=== PATIENT | male | born 1980 | race Caucasian/White ===

== ENCOUNTER 2020-04-01 14:00 | Inpatient (IN) | payer OTHER ==
[~2020-04-01] VITALS: Ht 188 cm; Wt 100.5 kg
[2020-04-01 14:29] LABS: BASOPHILS ABSOLUTE AUTO 0.03 K/mm3 (0.00-0.23); BASOPHILS PERCENT AUTO 0 % (0-2); EOSINOPHILS PERCENT AUTO 0 % (0-6); Hematocrit 44.1 % (37.0-53.0); Hemoglobin 14.9 g/dL (13.5-17.5); IMMATURE GRAN ABSOLUTE AUTO 0.06 K/mm3 (0.00-0.10); IMMATURE GRAN PERCENT AUTO 0 % (0-1); LYMPHOCYTES ABSOLUTE AUTO 2.23 K/mm3 (0.84-5.20); LYMPHOCYTES PERCENT AUTO 16 % (21-46); MONOCYTES ABSOLUTE AUTO 0.87 K/mm3 (0.16-1.47); MONOCYTES PERCENT AUTO 6 % (4-13); Mean Corpuscular HGB 30.8 pg (26.0-34.0); Mean Corpuscular HGB Conc 33.8 g/dL (31.5-36.5); Mean Corpuscular Volume 91 fL (80-100); Mean Platelet Volume 9.4 fL (9.1-12.4); NEUTROPHILS ABSOLUTE AUTO 10.56 K/mm3 (1.96-9.15); NEUTROPHILS PERCENT AUTO 77 % (41-73); Platelet Count 248 K/mm3 (150-400); RDW Standard Deviation 40.4 fL (35.1-46.3); Red Blood Cell Count 4.83 M/mm3 (4.30-5.90); White Blood Cell Count 13.75 K/mm3 (4.00-11.30)
[2020-04-01 14:33] LABS: PCO2 Arterial 51.9 mmHg (35-45); PO2 Arterial 144 mmHg (80-100); pH Blood Arterial 7.35 (7.35-7.45)
[2020-04-01 14:45] LABS: Alanine Aminotransfer (ALT/SGP 34 U/L (12-78); Albumin, Blood 3.3 g/dL (3.4-5.0); Albumin/Globulin Ratio 0.9 (0.8-1.8); Alk Phos 82 U/L (50-136); Anion Gap 10 mmol/L (6-16); Aspartate Aminotrans (AST/SGOT 32 U/L (12-37); Bilirubin, Total 0.7 mg/dL (0.1-1.0); Blood Urea Nitrogen 9 mg/dL (8-24); Bun/Creatinine Ratio 13.8 (12.0-20.0); CO2, Blood 29 mmol/L (21-32); Calcium, Blood 7.8 mg/dL (8.5-10.1); Chloride, Blood 98 mmol/L (98-108); Creatinine, Blood 0.65 mg/dL (0.60-1.20); Globulin, Blood 3.7 g/dL (2.2-4.0); Glomerular Filtration Rate >60 (60-); Glucose, Blood 205 mg/dL (70-99); Potassium, Blood 3.2 mmol/L (3.5-5.5); Sodium, Blood 137 mmol/L (136-145)
[2020-04-01 14:49] LABS: Ethanol (Alcohol), Blood, Med 482 mg/dL
[2020-04-01 15:06] LABS: Source, Urine Catheter
[2020-04-01 15:36] LABS: Appearance, Urine Hazy (Clear); Bilirubin, Urine Neg (Neg); Blood, Urine 5+ (Neg); Color, Urine Yellow (P-Yellow); Glucose Qualitative, Urine 3+ (Neg); Ketones, Urine 1+ (Neg); Leukocyte Esterase, Urine Neg (Neg); Nitrite, Urine Neg (Neg); Protein, Urine 3+ (Neg); Specific Gravity, Urine 1.025 (1.003-1.022); Urobilinogen, Urine NORM (Normal)
[2020-04-01 16:07] LABS: U Amphetamine Screen Not Detected; U Barbituate Screen Not Detected; U Benzodiazapine Screen Not Detected; U Buprenorphine Screen Not Detected; U Cannabinoids Screen Not Detected; U Cocaine Screen Not Detected; U Methadone Screen Not Detected; U Methamphetamine Screen Not Detected; U Opiates Screen Not Detected; U Oxycodone Screen Not Detected; U Phencyclidine Screen Not Detected; U Propoxyphene Screen Not Detected
[2020-04-01 16:16] LABS: Amorphous Mod (0-Heavy); Bacteria Rare /hpf; Squamous Epithelial Cells Rare /hpf (Few); White Blood Cells, Urine 0-2 /hpf (0-5)
--- NOTE | 2020-04-01 17:30 | NUR ---
PT ARRIVED FROM EMERGENCY DEPT WITH RN,RT,PCT. PT VENTILATED, OG TUBE IN PLACE, IV IN RIGHT HAND WITH PROPOFOL INFUSION, NS IN LEFT AC. PT WITH 5 PERSON TRANSFER WITH C-SPINE PRECAUTIONS IN PLACE. PT SWITCHED FROM PORTABLE VENTILATOR TO IN ROOM VENT. FULL BODY INSPECTION DURING REMOVAL OF EXCESS LINEN WHILE LOG ROLLING WITH [address] MEDEIROS IN TO ASSESS PATIENT. ORDERS RECEIVED. PT WITH PUPIL REACTION BUT EYES WANDERING LEFT AND RIGHT. PT WITH VISIBLE SHIVERING AND "GOOSE BUMP" SKIN. ALVARO HUGGER APPLIED. RESTRAINTS IN PLACE FOR SAFETY.
--- NOTE | 2020-04-01 19:00 | NUR ---
ASSUMPTION OF CARE RECEIVED REPORT FROM NANCY MARCELO AND JOSH MARCELO. ASSUMED CARE OF PATIENT. PATIENT VENTILATED AC16, VT 50, PEEP5, FIO2 30%. PROPOFOL AT 30MCG/KG/MIN. C-COLLAR IN PLACE. NO S/S OF DISTRESS, VITALS STABLE. WILL REVIEW ORDERS AND TREAT PRESCRIBED.
--- NOTE | 2020-04-01 19:25 | NUR ---
SUMMARY Assumed care of pt with Carmella MARCELO upon arrival to ICU 13 from ED at 1654. Pt arrived intubated. Transferred from ED gurney to ICU bed with several staff and C-spine precautions. Connected to ventilator AC 16/450/5/30%. SpO2 90% or greater. SR per monitor. BP stable. OG tube to LIS. Rodriguez catheter secured to bed, patent and draining yellow urine. Pt initially unresponsive, but at end of shift moving extremities spontaneously and responsive to pain. Sedated with propofol at 30 mcg/kg/min. Report given to oncoming RNMarichuy.
--- NOTE | 2020-04-01 21:14 | NUR ---
ACTIVITY PATIENT AROUSING, COUGHING AGAINST VENT, OPENED EYES, KICKING LEGS. PROPOFOL INCREASED CHARTED. PATIENT NOW SAS OF 3.
--- NOTE | 2020-04-02 | NUR ---
REASSESSMENT NO ACUTE CHANGES FROM INITIAL ASSESSMENT. PROPOFOL INCREASED TO 50MCG/KG/MIN PER PATIENT AWAKE, CONSTANT COUGHING AGAINST VENT, PULLING AGAINST RESTRAINTS. ORIENTED PATIENT TO SITUATION, PATIENT NOW SAS OF 3.
--- NOTE | 2020-04-02 04:00 | NUR ---
REASSESSMENT NO ACUTE CHANGES FROM PREVIOUS ASSESSMENT. VENT SETTINGS UNCHANGES. PATIENT'S PROPOFOL AT 40MCG/KG/MIN, PATIENT SPONTANEOUSLY AWOKE, COUGHING AGAINST TUBE AND PULLING AT RESTRAINTS. ATTEMPTING TO SIT UP, VERBALLY DIRECTED PATIENT, PATIENT CONTINUED TO COUGH AGAINST TUBE. INCREASED PROPOFOL BACK TO 50MCG/KG/MIN, SAS NOW OF 3.
[2020-04-02 04:02] LABS: BASOPHILS ABSOLUTE AUTO 0.03 K/mm3 (0.00-0.23); BASOPHILS PERCENT AUTO 0 % (0-2); EOSINOPHILS ABSOLUTE AUTO 0.01 K/mm3 (0.00-0.68); EOSINOPHILS PERCENT AUTO 0 % (0-6); Hematocrit 41.2 % (37.0-53.0); Hemoglobin 13.6 g/dL (13.5-17.5); IMMATURE GRAN ABSOLUTE AUTO 0.04 K/mm3 (0.00-0.10); IMMATURE GRAN PERCENT AUTO 0 % (0-1); LYMPHOCYTES ABSOLUTE AUTO 2.23 K/mm3 (0.84-5.20); LYMPHOCYTES PERCENT AUTO 17 % (21-46); MONOCYTES ABSOLUTE AUTO 1.18 K/mm3 (0.16-1.47); MONOCYTES PERCENT AUTO 9 % (4-13); Mean Corpuscular HGB 30.4 pg (26.0-34.0); Mean Corpuscular Volume 92 fL (80-100); Mean Platelet Volume 9.7 fL (9.1-12.4); NEUTROPHILS ABSOLUTE AUTO 9.47 K/mm3 (1.96-9.15); NEUTROPHILS PERCENT AUTO 73 % (41-73); Platelet Count 214 K/mm3 (150-400); RDW Coefficient Variation 12.2 % (11.7-14.2); RDW Standard Deviation 41.2 fL (35.1-46.3); Red Blood Cell Count 4.48 M/mm3 (4.30-5.90); White Blood Cell Count 12.96 K/mm3 (4.00-11.30)
[2020-04-02 04:21] LABS: Anion Gap 9 mmol/L (6-16); Blood Urea Nitrogen 11 mg/dL (8-24); Bun/Creatinine Ratio 15.2 (12.0-20.0); CO2, Blood 27 mmol/L (21-32); Calcium, Blood 7.7 mg/dL (8.5-10.1); Chloride, Blood 106 mmol/L (98-108); Creatinine, Blood 0.73 mg/dL (0.60-1.20); Glomerular Filtration Rate >60 (60-); Glucose, Blood 100 mg/dL (70-99); Magnesium, Blood 1.7 mg/dL (1.6-2.4); Phosphorus, Blood 2.6 mg/dL (2.5-4.9); Potassium, Blood 3.5 mmol/L (3.5-5.5); Sodium, Blood 142 mmol/L (136-145)
[2020-04-02 05:49] LABS: PCO2 Arterial 42.1 mmHg (35-45); PO2 Arterial 102 mmHg (80-100); pH Blood Arterial 7.44 (7.35-7.45)
--- NOTE | 2020-04-02 06:08 | NUR ---
SHIFT SUMMARY NO ACUTE CHANGES THROUGH NIGHT. PATIENT REMAIND VENTILATED AND SEDATED WITH STABLE VITALS. SEDATION VACATION STARTED AT 0500, PATIENT AWOKE EASILY, FOLLOWED COMMANDS AND TOLERTED SPONTANEOUS VENT SETTINGS WELL. ABG AND OTHER LABS RESULTED, ATTEMPTED TO KEEP PATIENT ON SPONTANEOUS AND OFF SEDATION, PATIENT WANTED TO BE EXTUBATED AND WAS BECOMING UNCOMFORTABLE. DECISION WAS MADE AFTER SPEAKING WITH CHIEF SECURITY OFFICER TO PLACE BACK ON A/C WITH PREVIOUS VENT SETTINGS OF AC16, VT 450, PEEP 5, FIO2 30%. EDUCATED PATIENT REGARDING CHANGE IN VENT SETTINGS, AND RESTARTING SEDATION FOR COMFORT. PATIENT UNDERSTOOD, BUT DID NOT TOLERATE SWITCHING BACK TO AC, CONSTANT COUGHING AGAINST TUBE. SEDATION INCREASED QUICKLY AND PRN ATIVAN GIVEN CHARTED. WILL TITRATE PROPOFOL DOWN TO MAINTAIN SAS OF 3. CURRENTLY VS ARE STABLE, PATIENT REMAINS RESTRAINED. WILL CONTINUE TO MONITOR AND REPORT TO ONCOMING RN.
--- NOTE | 2020-04-02 07:00 | NUR ---
ASSUMED CARE: PT RESTING QUIETLY AT THIS TIME, PROPOFOL AT 30MCG/KG, WILL TITRATE ABLE. VENT IN PLACE WITH SETTINGS AC 16/450/5/30%. BILATERAL WRIST RESTRAINTS, OG TO LIS. OCONNOR IN PLACE, LOW GRADE TEMP. BRUISING NOTED TO BILATERAL EYES AND SCATTERED ABRASIONS T/O FACE AND HANDS. C-COLLAR IN PLACE. NO FURTHER NEEDS OR CONCERNS AT THIS TIME.
--- NOTE | 2020-04-02 08:26 | NUR ---
SEDATION VACATION COMPLETED. PT OPENED EYES, NODDED HEAD WHEN DR MEDEIROS ASKED YES/NO QUESTIONS. FOLLOWED DIRECTIONS. PLANNING TO EXTUBATE THIS AM. RT AWARE
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
--- NOTE | 2020-04-02 09:00 | NUR ---
DR MEDEIROS AWARE OF PT'S STATUS POST EXTUBATION. CALL TO DR HULL TO UPDATE HIM. DR HULL STATES HE WILL COME SEE HIM LATER THIS AM. PT AWARE. COOPERATIVE AT THIS TIME. WATCHING TV
--- NOTE | 2020-04-02 12:50 | NUR ---
PT GIVEN DC INSTRUCTIONS INCLUDING TO CALL FOR MEDICAL ATTENTION IF DIZZINESS OR NAUSEA STARTS. IV'S DC'D WNL. DENIED NEEDS OR CONCERNS. ADVISED TO ESTABLISH PCP. ESCORTED OUT VIA WHEEL CHAIR BY RN
== END 2020-04-02 12:40 | disposition home or self-care (01) | DRG 208 ==
LOC: ER 14:00 → ICUW 14:01
PROVIDERS: Emergency Medicine; Internal Medicine Critical Care Medicine; ADMIT Surgery
PROC: 0BH18EZ Insertion of Endotracheal Airway into Trachea, Via Natural or Artificial Opening Endoscopic (ICD-10-PCS; principal; 2020-04-01)
PROC: 5A1935Z Respiratory Ventilation, Less than 24 Consecutive Hours (ICD-10-PCS; 2020-04-01)
DX: J96.00 Acute respiratory failure, unspecified whether with hypoxia or hypercapnia (principal); F10.929 Alcohol use, unspecified with intoxication, unspecified; Y90.8 Blood alcohol level of 240 mg/100 ml or more; S02.2XXA Fracture of nasal bones, initial encounter for closed fracture; R40.2432 Glasgow coma scale score 3-8, at arrival to emergency department; W18.30XA Fall on same level, unspecified, initial encounter; Y92.9 Unspecified place or not applicable; E87.6 Hypokalemia; Z78.1 Physical restraint status
CPT/HCPCS: 31500; 31720; 36415; 36600; 51702; 70450; 70486; 71045; 72125; 80048; 80053; 81001; 82803; 83735; 84100; 85025; 86850; 86900; 86901; 93005; 93010; 94002; 94003; 94640; 94770; 99285-25; C9113; G0480; J0330; J1650; J2060; J2704; J3480; J7030; J7120

== ENCOUNTER 2020-04-13 16:35 | Observation (INO) | payer SELFPAY ==
[~2020-04-13] VITALS: Ht 170.2 cm; Wt 83.0 kg
[2020-04-13 16:58] LABS: BASOPHILS ABSOLUTE AUTO 0.05 K/mm3 (0.00-0.23); BASOPHILS PERCENT AUTO 1 % (0-2); EOSINOPHILS ABSOLUTE AUTO 0.02 K/mm3 (0.00-0.68); EOSINOPHILS PERCENT AUTO 0 % (0-6); Hematocrit 46.9 % (37.0-53.0); Hemoglobin 15.2 g/dL (13.5-17.5); IMMATURE GRAN ABSOLUTE AUTO 0.12 K/mm3 (0.00-0.10); IMMATURE GRAN PERCENT AUTO 2 % (0-1); LYMPHOCYTES PERCENT AUTO 25 % (21-46); MONOCYTES PERCENT AUTO 8 % (4-13); Mean Corpuscular HGB 30.8 pg (26.0-34.0); Mean Corpuscular HGB Conc 32.4 g/dL (31.5-36.5); Mean Corpuscular Volume 95 fL (80-100); Mean Platelet Volume 9.2 fL (9.1-12.4); NEUTROPHILS ABSOLUTE AUTO 3.88 K/mm3 (1.96-9.15); NEUTROPHILS PERCENT AUTO 64 % (41-73); Platelet Count 257 K/mm3 (150-400); RDW Coefficient Variation 13.2 % (11.7-14.2); RDW Standard Deviation 46.3 fL (35.1-46.3); Red Blood Cell Count 4.93 M/mm3 (4.30-5.90); White Blood Cell Count 6.07 K/mm3 (4.00-11.30)
[2020-04-13 17:20] LABS: Alanine Aminotransfer (ALT/SGP 139 U/L (12-78); Albumin, Blood 3.1 g/dL (3.4-5.0); Albumin/Globulin Ratio 0.7 (0.8-1.8); Alk Phos 252 U/L (50-136); Anion Gap 11 mmol/L (6-16); Aspartate Aminotrans (AST/SGOT 69 U/L (12-37); Bilirubin, Total 0.4 mg/dL (0.1-1.0); Blood Urea Nitrogen 6 mg/dL (8-24); Bun/Creatinine Ratio 7.8 (12.0-20.0); CO2, Blood 20 mmol/L (21-32); Calcium, Blood 8.2 mg/dL (8.5-10.1); Chloride, Blood 107 mmol/L (98-108); Creatinine, Blood 0.77 mg/dL (0.60-1.20); Globulin, Blood 4.6 g/dL (2.2-4.0); Glomerular Filtration Rate >60 (60-); Glucose, Blood 117 mg/dL (70-99); Potassium, Blood 3.5 mmol/L (3.5-5.5); Salicylate <1.7 mg/dL (2.8-20.0); Sodium, Blood 138 mmol/L (136-145); Total Protein, Blood 7.7 g/dL (6.4-8.2)
[2020-04-13 17:44] LABS: Acetaminophen, Random <2.0 ug/mL (10.0-30.0); Ethanol (Alcohol), Blood, Med 439 mg/dL
[2020-04-13 20:20] LABS: U Amphetamine Screen Not Detected; U Barbituate Screen Not Detected; U Benzodiazapine Screen Not Detected; U Buprenorphine Screen Not Detected; U Cannabinoids Screen Not Detected; U Cocaine Screen Not Detected; U Methadone Screen Not Detected; U Methamphetamine Screen Not Detected; U Opiates Screen Not Detected; U Oxycodone Screen Not Detected; U Phencyclidine Screen Not Detected; U Propoxyphene Screen Not Detected
== END 2020-04-14 02:09 | disposition home or self-care (01) ==
LOC: ER 16:35 → EOR 16:36
PROVIDERS: ADMIT Student in an Organized Health Care Education/Training Program
DX: F10.129 Alcohol abuse with intoxication, unspecified (principal); Y90.8 Blood alcohol level of 240 mg/100 ml or more
CPT/HCPCS: 80053; 82947; 85025; 93005; 93010; G0480; J2405; J7030